=== PATIENT | male | born 1955 ===

== ENCOUNTER 2023-02-27 20:43 | Emergency (ER) | payer SELFPAY ==
[~2023-02-27] VITALS: Ht 177.8 cm; Wt 104.3 kg
== END 2023-02-27 22:13 | disposition home or self-care (01) ==
LOC: ER 20:43
DX: S01.01XA Laceration without foreign body of scalp, initial encounter (principal); W01.190A Fall on same level from slipping, tripping and stumbling with subsequent striking against furniture, initial encounter
CPT/HCPCS: 12002; 99283-25